=== PATIENT | female | born 1995 | race Caucasian/White ===

== ENCOUNTER → 2020-06-13 14:56 | Outpatient (BNVA) | payer SELFPAY | PROVIDERS: Family Provider Nurse Practitioner Family; PCP Nurse Practitioner Family; Visit Provider Nurse Practitioner Family | DX: Z13.6 Encounter for screening for cardiovascular disorders (principal); R53.82 Chronic fatigue, unspecified; F41.9 Anxiety disorder, unspecified; F32.9 Major depressive disorder, single episode, unspecified; E03.9 Hypothyroidism, unspecified | CPT/HCPCS: 80053; 80061; 82306; 82607; 83540; 83735; 84439; 84443; 84481; 85025 ==

== ENCOUNTER → 2020-07-24 16:22 | Outpatient (BNVA) | payer SELFPAY | PROVIDERS: Family Provider Nurse Practitioner Family; PCP Nurse Practitioner Family; Visit Provider Nurse Practitioner Family | DX: E03.9 Hypothyroidism, unspecified (principal) | CPT/HCPCS: 86376 ==

== ENCOUNTER 2020-08-14 15:34 | Inpatient (IN) | payer SELFPAY ==
[2020-08-14 15:39] VITALS: TEMP 36.7; BMI 22.9
[2020-08-14 16:20] VITALS: RESP 16
[2020-08-14 16:23] LABS: HCG Qualitative Urine. Negative (Negative)
[2020-08-14 16:30] LABS: Basophils # 0.1 10^3/uL (0.0-0.1); Basophils % 0.7 %; Eosinophils # 0.1 10^3/uL (0.0-0.8); Eosinophils % 0.9 %; Hematocrit 45.7 % (37.0-47.0); Hemoglobin 15.7 g/dL (11.5-15.3); Lymphocytes # 2.4 10^3/uL (0.8-4.8); Lymphocytes % 23.6 %; Mean Corpuscular HGB Conc 34.4 g/dL (30.0-36.0); Mean Corpuscular Hemoglobin 29.8 pg (28.0-34.0); Mean Corpuscular Volume 86.7 fL (81-99); Mean Platelet Volume 11.2 fL (7.4-10.4); Monocytes % 9.7 %; Neutrophils # 6.55 10^3/uL (1.8-7.7); Neutrophils % 64.8 %; Nucleated Red Blood Cells % 0 %; Platelet Count 403 10^3/cmm (130-400); Red Blood Count 5.27 10^6/uL (4.1-5.3); Red Cell Distribution Width 12.2 % (12.1-15.1); White Blood Count 10.1 10^3/uL (4.0-10.0)
[2020-08-14 16:43] LABS: Alanine Aminotransferase 11 U/L (0-33); Albumin Level 4.6 g/dL (3.5-5.2); Alkaline Phosphatase 62 IU/L (35-105); Anion Gap 11.8 (5-19); Aspartate Amino Transferase 13 U/L (0-32); Blood Urea Nitrogen 9 mg/dL (6-20); Calcium 9.8 mg/dL (8.5-10.5); Carbon Dioxide 28 mmol/L (22-29); Chloride 98 mmol/L (98-107); Globulin 2.9 g/dL (1.3-4.6); Glomerular Filtration Rate 102.8 mL/min (90-130); Glucose 101 mg/dL (65-115); Osmolality Calculated 277 mOsm/kg (285-295); Potassium 3.8 mmol/L (3.5-5.1); Sodium 134 mmol/L (136-145); Total Bilirubin 0.6 mg/dL (0.15-1.2); Total Protein 7.5 g/dL (6.6-8.7)
[2020-08-14 17:47] VITALS: RESP 17
--- NOTE | 2020-08-14 18:13 | W.ED.PSYCH ---
HPI - Psych General: Chief Complaint: Psychiatric Symptoms Stated Complaint: PSYCH EVAL/SENT FROM [facility] Time Seen by Provider: 08/14/20 15:49 History of Present Illness: HPI Narrative: 25-year-old female presents to the emergency room with complaints of depression anhedonia. She is having thoughts of harming herself but has no specific plan. She states she does not think she would be able to do it. MD complaint: suicidal ideation and feels depressed Onset (ago): month(s) Duration: intermittent History of same: Yes Relieving factors: none Exacerbating factors: none Associated psychiatric symptoms: depression and suicidal ideation Associated symptoms: Reports depression and suicidal ideation; Deny auditory hallucinations, visual hallucinations, delusions, homicidal ideation or racing thoughts Treatments prior to arrival: none If self harm: admits thoughts of self harm Review of Systems Const: Denies: fever(s), chills, body aches, change in appetite, fatigue or malaise ENMT: Denies: throat pain, ear or mastoid pain, nasal discharge or nasal congestion Card: Denies: chest pain, edema, dyspnea on exertion or orthopnea Resp: Denies: dyspnea, productive cough or non-productive cough GI: Denies: abdominal pain, nausea, vomiting, hematemesis, coffee ground emesis, diarrhea, constipation, bloating, hematochezia or melena : Denies: flank pain, difficulty voiding, dysuria, urinary frequency or urinary urgency Skin/Breast: Denies: rash or pruritus Psych: Reports: depression and suicidal ideation; Denies: visual hallucinations, auditory hallucinations or homicidal ideation [facility] ED PFSH: Family History Mother Hypertension Father Hypertension Social History Smoking and tobacco status: former smoker Quit status (tobacco): has quit using tobacco Second hand smoke exposure: No Alcohol intake: current Desire information about alcohol rehabilitation?: No Lives independently: Yes Housing: Apartment Marital status: Single Current gender identity: Female Vicky/Orthodox: Restorationism Special vicky needs: No Female Reproductive History: Date of last menstrual period: 07/28/20 Physical Exam Const: COMMON NORMALS: no acute distress GENERAL APPEARANCE: cooperative and comfortable ORIENTATION/CONSCIOUSNESS: Yes oriented to person, Yes oriented to place and Yes oriented to time HENMT: COMMON NORMALS: normocephalic, atraumatic and hearing grossly normal bilaterally HEAD & SCALP: normocephalic and atraumatic Neck/C-Spine: COMMON NORMALS: no JVD Resp: COMMON NORMALS: normal respiratory effort, No retractions, No use of accessory muscles and clear to auscultation bilaterally AUSCULTATION: clear to auscultation bilaterally Cardio: COMMON NORMALS: no JVD, regular rate, regular rhythm and No murmurs present (Cardio) RATE: regular rate RHYTHM: regular rhythm GI: COMMON NORMALS: Soft to palpation and No hepatosplenomegaly present AUSCULTATION: Yes normoactive bowel sounds PALPATION: Yes Soft to palpation, No Tenderness to palpation present (GI), No Guarding due to palpation present (GI) and Yes No hepatosplenomegaly present Extremity: COMMON NORMALS: normal to inspection, capillary refill normal, no clubbing, cyanosis or edema, no calf tenderness and no pedal edema Neuro: SENSORIUM/ORIENTATION: Yes oriented to person, Yes oriented to place and Yes oriented to time Psych: THOUGHT CONTENT: No delusions Skin: COMMON NORMALS: no rashes or lesions noted GENERAL SKIN EXAM: no rashes or lesions noted MDM - Psych MDM Narrative: Medical decision making narrative: Patient denies having any plans but is having frequent suicidal thoughts. She has started venlafaxine 2 weeks ago with no improvement. Discussed with Dr. Karimi on-call will admit patient is voluntarily wanting to go into the hospital did not place a 96-hour hold. Lab Data: Labs: Lab Results 08/14/20 08/14/20 08/14/20 Range/Units 16:05 16:05 16:05 WBC (4.0-10.0) 10^3/ uL RBC (4.1-5.3) 10^6/u L Hgb (11.5-15.3) g/dL Hct (37.0-47.0) % MCV (81-99) fL MCH (28.0-34.0) pg MCHC (30.0-36.0) g/dL RDW (12.1-15.1) % Plt Count (130-400) 10^3/c mm MPV (7.4-10.4) fL Neut % (Auto) % Lymph % (Auto) % Bowman % (Auto) % Eos % (Auto) % Baso % (Auto) % Neut # (Auto) (1.8-7.7) 10^3/u L Lymph # (Auto) (0.8-4.8) 10^3/u L Bowman # (Auto) (0.2-0.9) 10^3/u L Eos # (Auto) (0.0-0.8) 10^3/u L Baso # (Auto) (0.0-0.1) 10^3/u L Nucleated RBC % (a uto) % Nucleated RBCs # /100WBC Sodium (136-145) mmol/L Potassium (3.5-5.1) mmol/L Chloride (98-107) mmol/L Carbon Dioxide (22-29) mmol/L Anion Gap (5-19) BUN (6-20) mg/dL Creatinine (0.5-0.9) mg/dL GFR Calculation (90-130) mL/min Glucose (65-115) mg/dL Calculated Osmolal ity (285-295) mOsm/k g Calcium (8.5-10.5) mg/dL Total Bilirubin (0.15-1.2) mg/dL AST (0-32) U/L ALT (0-33) U/L Alkaline Phosphata se (35-105) IU/L Total Protein (6.6-8.7) g/dL Albumin (3.5-5.2) g/dL Globulin (1.3-4.6) g/dL HCG, Qual Negative (Negative) Urine Color Yellow (Yellow) Urine Appearance Cloudy (CLEAR) Urine pH 6.5 (5-7) Ur Specific Gravit y 1.020 (1.005-1.030) Urine Protein 2+ H (Negative) Urine Glucose (UA) Norm (Normal) Urine Ketones Negative (Negative) Urine Blood Neg (Negative) Urine Nitrate Negative (Negative) Urine Bilirubin Neg (Negative) Urine Urobilinogen 4 H (Negative) mg/dL Ur Leukocyte Toya ase Negative (Negative) Urine RBC 0-4 H (0-2) /hpf Urine WBC 0-4 H (0-5) /hpf Ur Squamous Epith Cells 5-10 H (0-5) /hpf Amorphous Sediment Not Reportable Urine Bacteria 1+ H (NONE) /hpf Salicylates (3-10) mg/dL Urine Opiates Scre en Negative (Negative) ng/mL Acetaminophen (10-30) ug/mL Ur Barbiturates Sc reen Negative (Negative) ng/mL Ur Phencyclidine S crn Negative (Negative) ng/mL Ur Amphetamines Sc reen Negative (Negative) ng/mL U Benzodiazepines Scrn Negative (Negative) ng/mL Urine Cocaine Scre en Negative (Negative) ng/mL U Marijuana (THC) Screen Negative (Negative) ng/mL Ethyl Alcohol (0-10) mg/dL 08/14/20 08/14/20 08/14/20 Range/Units 16:15 16:15 16:15 WBC 10.1 H (4.0-10.0) 10^3/ uL RBC 5.27 (4.1-5.3) 10^6/u L Hgb 15.7 H (11.5-15.3) g/dL Hct 45.7 (37.0-47.0) % MCV 86.7 (81-99) fL MCH 29.8 (28.0-34.0) pg MCHC 34.4 (30.0-36.0) g/dL RDW 12.2 (12.1-15.1) % Plt Count 403 H (130-400) 10^3/c mm MPV 11.2 H (7.4-10.4) fL Neut % (Auto) 64.8 % Lymph % (Auto) 23.6 % Bowman % (Auto) 9.7 % Eos % (Auto) 0.9 % Baso % (Auto) 0.7 % Neut # (Auto) 6.55 (1.8-7.7) 10^3/u L Lymph # (Auto) 2.4 (0.8-4.8) 10^3/u L Bowman # (Auto) 1.0 H (0.2-0.9) 10^3/u L Eos # (Auto) 0.1 (0.0-0.8) 10^3/u L Baso # (Auto) 0.1 (0.0-0.1) 10^3/u L Nucleated RBC % (a uto) 0 % Nucleated RBCs # 0.0 /100WBC Sodium 134 L (136-145) mmol/L Potassium 3.8 (3.5-5.1) mmol/L Chloride 98 (98-107) mmol/L Carbon Dioxide 28 (22-29) mmol/L Anion Gap 11.8 (5-19) BUN 9 (6-20) mg/dL Creatinine 0.7 (0.5-0.9) mg/dL GFR Calculation 102.8 (90-130) mL/min Glucose 101 (65-115) mg/dL Calculated Osmolal ity 277 L (285-295) mOsm/k g Calcium 9.8 (8.5-10.5) mg/dL Total Bilirubin 0.6 (0.15-1.2) mg/dL AST 13 (0-32) U/L ALT 11 (0-33) U/L Alkaline Phosphata se 62 (35-105) IU/L Total Protein 7.5 (6.6-8.7) g/dL Albumin 4.6 (3.5-5.2) g/dL Globulin 2.9 (1.3-4.6) g/dL HCG, Qual (Negative) Urine Color (Yellow) Urine Appearance (CLEAR) Urine pH (5-7) Ur Specific Gravit y (1.005-1.030) Urine Protein (Negative) Urine Glucose (UA) (Normal) Urine Ketones (Negative) Urine Blood (Negative) Urine Nitrate (Negative) Urine Bilirubin (Negative) Urine Urobilinogen (Negative) mg/dL Ur Leukocyte Toya ase (Negative) Urine RBC (0-2) /hpf Urine WBC (0-5) /hpf Ur Squamous Epith Cells (0-5) /hpf Amorphous Sediment Urine Bacteria (NONE) /hpf Salicylates < 0.3 L (3-10) mg/dL Urine Opiates Scre en (Negative) ng/mL Acetaminophen < 5.0 L (10-30) ug/mL Ur Barbiturates Sc reen (Negative) ng/mL Ur Phencyclidine S crn (Negative) ng/mL Ur Amphetamines Sc reen (Negative) ng/mL U Benzodiazepines Scrn (Negative) ng/mL Urine Cocaine Scre en (Negative) ng/mL U Marijuana (THC) Screen (Negative) ng/mL Ethyl Alcohol < 10 (0-10) mg/dL Discharge Plan Discharge Patient Disposition: Admitted As Inpatient Admit Provider: Eze Karimi Clinical Impression: Suicidal ideation, Depression Condition: Stable Coding Level of Care Code ED Human Factors Advisor Lead for Jovana Del Valle
[2020-08-14 18:19] LABS: Add Urine Microscopic? YES; Bacteria Urine 1+ /hpf; Bilirubin Urine Neg (Negative); Blood Urine Neg (Negative); Glucose Urine UA Norm (Normal); Ketones Urine Negative (Negative); Leukocyte Esterase Urine Negative (Negative); Nitrate Urine Negative (Negative); Protein Urine 2+ (Negative); RBC Urine 0-4 /hpf (0-2); Urine Appearance Cloudy (CLEAR); Urine Color Yellow (Yellow); Urobilinogen Urine 4 mg/dL (Negative); WBC Urine 0-4 /hpf (0-5); pH Urine 6.5 (5-7)
[2020-08-14 18:39] VITALS: BP 119/84; PULSE 101; RESP 16; TEMP 36.7; O2SAT 100
[2020-08-14 19:06] LABS: Acetaminophen < 5.0 ug/mL (10-30); Alcohol Level < 10 mg/dL (0-10); Salicylate < 0.3 mg/dL (3-10)
[2020-08-14 19:13] LABS: Amphetamines Screen Urine Negative (Negative); Barbiturates Screen Urine Negative (Negative); Benzodiazepines Screen Urine Negative (Negative); Cocaine Screen Urine Negative (Negative); Opiate Screen Urine Negative (Negative); PCP Screen Urine Negative (Negative); THC Screen Urine Negative (Negative)
[2020-08-14 19:16] VITALS: BP 131/92; PULSE 120; RESP 18; TEMP 36.7; O2SAT 93
[2020-08-14 20:23] VITALS: BP 131/92; PULSE 120; RESP 18; TEMP 36.7; O2SAT 93
--- NOTE | 2020-08-14 20:25 | PC.NURSE ---
Skin assessment revealed no wounds, injuries or abnormalities.
[2020-08-14] MEDS: trazodone 50 mg Tablet PO (20:31)
[2020-08-14] MEDS: hyDROXYzine 25 mg Capsule 50 MG PO (20:32)
[2020-08-15 06:00] VITALS: BP 104/67; PULSE 78; RESP 16; TEMP 36.9; O2SAT 97
[2020-08-15 14:00] VITALS: BP 109/79; PULSE 60; RESP 20; TEMP 37; O2SAT 98
--- NOTE | 2020-08-15 14:38 | P.HP_ITS ---
Providers/Chief Complaint Admitting Physician: Eze Karimi DO Primary Care Provider: SHERRY Chavarria Chief Complaint: PSYCH EVAL/SENT FROM [facility] HPI NPU History of Present Illness Allie Garay is a 25 year old female with history of depressive and anxiety symptoms over the past 2 months reports worsening depressive symptoms in the context of obsessions, intrusive thoughts with intermittent passive suicidal thoughts with no active intent or plan. Patient states that her symptoms started after having a panic attack a couple months ago and reports daily symptoms of intrusive thoughts, excessive worry, difficulty controlling her worrying, difficulty initiating and maintaining sleep secondary to her anxiety symptoms. Patient reports that her severe anxiety symptoms cause significant depressive symptoms as well as thoughts that she might as well not be alive. Patient reports being started on a couple of low-dose regimens of antidepressant which she had stopped because of anxiety about potentially having side effects to these medications without accomplishing a therapeutic dosage. Patient denies any ongoing therapy targeting the symptoms. Patient reports that with her symptoms she occasionally has some paresthesias in her hands and occasionally feet as well as having an upset stomach intermittently experiencing constipation and diarrhea. Patient denies any auditory or visual destinations, denies any disorganized speech or behavior, denies any delusions. She denies any past or recent manic or hypomanic episodes. Patient denies any history of psychiatric hospitalizations and denies any history of suicide attempts. Patient reports previous cigarette smoking and vaping but denies any use for the past 3 months. She also reports past marijuana use intermittently but denies any daily use and denies any use over the past couple of months. She denies any other illicit drug use. Patient also reports that she has not drank any alcohol over the past couple of months because of concerns with her symptoms. Review of Systems General: Reports: 10 or more systems reviewed and unremarkable except in HPI and below Meds NPU Home Medications Medication Instructions Recorded Confirmed Last Taken Type cholecalciferol (vitamin D3) 50 mcg PO DAILY@0 08/14/20 08/14/20 Unknown History venlafaxine 75 mg PO DAILY@0 08/14/20 08/14/20 08/14/20 History Allergies Allergy/AdvReac Type Severity Reaction Status Date / Time No Known Allergies Allergy Verified 07/27/20 17:00 PFS NPU PFSH: Family History Mother Hypertension Father Hypertension Social History Smoking and tobacco status: former smoker Quit status (tobacco): has quit using tobacco Second hand smoke exposure: No Alcohol intake: current Desire information about alcohol rehabilitation?: No Lives independently: Yes Housing: Apartment Marital status: Single Current gender identity: Female Vicky/Christianity: Protestant Special vicky needs: No Other Psychiatric History: Other Psychiatric History: Reports being seen by [facility] for medication management and therapy Denies any history of psychiatric hospitalization Denies any history of suicide attempt or self-harm behavior Mental Status Exam MSE Comments: Appears stated age, thin frame, somewhat disheveled, tired appearing, appropriately dressed in hospital attire, somewhat nervous but cooperative with interview, good eye contact Psychomotor activity is neither increased nor decreased, no agitation Speech is normal rate and volume, spontaneous, clear to condition, not pressured I feel really nervous, congruent affect, intermittently tearful throughout interview Alert and oriented to person, place, time, situation Memory and concentration appear to be intact per interview Intellectual functioning appears to be average based on vocabulary, interview Thought process, circumstantial requiring some redirection, no flight of ideas, no looseness of associations Thought content, no delusions, no hallucinations, no suicidal or homicidal ideation Insight and judgment appear to be intact Vitals/I&O/Wt Last Vital Signs Temp 98.6 F 08/15/20 14:00 Pulse 60 08/15/20 14:00 Resp 20 H 08/15/20 14:00 BP 109/79 08/15/20 14:00 Pulse Ox 98 08/15/20 14:00 Weight last 48 hrs Weight 62.596 kg Data NPU : 08/14/20 16:15 08/14/20 16:15 A&P Assessment and plan (1) Suicidal ideation: Status: Acute (2) Depression: Status: Acute (3) Anxiety disorder: Status: Acute Additional A&P Information Patient with new onset obsessions, worsening anxiety over the past couple months starting with a panic attack with intermittent panic symptoms, depressive symptoms, passive suicidal ideation with no active intent or plan presents with worsening impairment secondary to her anxiety and depressive symptoms on her current medication regimen. VOLUNTARY ADMIT to inpatient psychiatry START sertraline 25 mg daily targeting depressive and anxiety symptoms START clonazepam 0.25 mg twice daily targeting anxiety symptoms with plan to taper off and discontinue prior to discharge Coordinate with social secretary for post discharge medication management and therapy follow-up Involuntary Hold Information 96 Hour Hold: 96 Hour Involuntary Admission: No Attestations NPU Medical Necessity Statement*: Patient requires psychiatric hospitalization for medication stabilization and coordination for safe discharge Anticipate hospital stay to exceed 2 midnights Time Spent in Patient Care: Greater than 35 minutes (>than 50% of time spent in counselling and/or direct pt care on unit) . Coding Level of Care Code Acute Information Services Vice President for Chg Fwd Diagnoses Suicidal ideation R45.851 Depression F32.9 Anxiety disorder F41.9
[2020-08-15] MEDS: CLONazepam 0.5 mg Tablet 0.25 MG PO ×2 (15:12→19:29)
[2020-08-15] MEDS: venlafaxine 75 mg Tablet PO (16:53)
[2020-08-15] MEDS: cholecalciferol (vitamin D3) 1,000 unit Tablet 2000 UNIT PO (16:53)
[2020-08-15 20:09] VITALS: BP 100/69; PULSE 76; RESP 18; TEMP 36.3; O2SAT 99
[2020-08-16 06:00] VITALS: BP 102/68; PULSE 80; RESP 16; TEMP 36.4; O2SAT 98
[2020-08-16] MEDS: CLONazepam 0.5 mg Tablet 0.25 MG PO ×2 (07:52→20:35)
[2020-08-16] MEDS: sertraline 50 mg Tablet 25 MG PO (07:52)
--- NOTE | 2020-08-16 09:32 | P.PN_ITS ---
Subjective NPU Subjective: Interval history: Patient reports improvement with regards to intrusive thoughts, describes occasional passive thoughts but less passive suicidal thoughts, no active intent or plan Continues to report some anxiety but reports significant improvement, denies any interval panic symptoms Denies any interval perceptual disturbances Reports being compliant with her medication, denies any medication side effects Reports having a fair to good appetite Reports improved sleep with occasional sleep disturbances, reports feeling rested this morning Per staff report, no interval behavioral disturbances Mental Status Exam MSE Comments: Appropriately groomed and dressed, lying in bed, calm, cooperative, interactive, good eye contact Psychomotor activity is neither increased nor decreased, no agitation Speech is normal rate and volume, spontaneous, not pressured I feel a little better, congruent affect, not labile Alert and oriented to person, place, time, situation Memory and concentration appear to be intact per interview Thought process, linear, no flight of ideas, no looseness of associations Thought content, no delusions, no hallucinations, no suicidal or homicidal ideation Insight and judgment appear to be intact Vitals/I&O/Wt Last Vital Signs Temp 97.5 F L 08/16/20 06:00 Pulse 80 08/16/20 06:00 Resp 16 08/16/20 06:00 BP 102/68 08/16/20 06:00 Pulse Ox 98 08/16/20 06:00 Weight last 48 hrs Weight 62.596 kg Data NPU : 08/14/20 16:15 08/14/20 16:15 A&P Assessment and plan (1) Suicidal ideation: Status: Acute (2) Anxiety disorder: Status: Acute Qualifiers: Anxiety disorder type: unspecified anxiety disorder Qualified Code(s): F41.9 - Anxiety disorder, unspecified (3) Depression: Status: Acute Qualifiers: Depression Type: unspecified Qualified Code(s): F32.9 - Major depressive disorder, single episode, unspecified Additional A&P Information Patient reports more immediate improvement with regards to intrusive thoughts, continues to report intermittent depressive and anxiety symptoms, intermittent passive suicidal thoughts with no active intent or plan INCREASE to sertraline 50 mg daily targeting depressive and anxiety symptoms Involuntary Hold Information 96 Hour Hold: 96 Hour Involuntary Admission: No Attestations NPU Medical Necessity Statement*: Continues require psychiatric hospitalization for medication stabilization, coordination for safe discharge Coding Level of Care Code Acute Fancy Stitcher for [facility] Eligio Diagnoses Suicidal ideation R45.851 Anxiety disorder F41.9 Anxiety disorder type: unspecified anxiety disorder Depression F32.9 Depression Type: unspecified
[2020-08-16 14:00] VITALS: BP 115/71; PULSE 99; RESP 17; TEMP 36.7; O2SAT 98
[2020-08-16] MEDS: cholecalciferol (vitamin D3) 1,000 unit Tablet 2000 UNIT PO (16:32)
[2020-08-16] MEDS: venlafaxine 75 mg Tablet PO (16:33)
--- NOTE | 2020-08-16 19:21 | P.PN_ITS ---
NPU Therapy Progress Note Therapy Progress Note Date: 08/16/20 Time In: 18:00 Time Out: 18:15 Symptoms Reported: depression, anxiety Mood: stable Progress Note: JANNET approached Allie while sitting in the dayroom and she is agreeable to talk. She reports issue surrounding medication reaction and elevated anxiety as the reason that brought her to the hospital. She describes the progression of her sx over the course of 2 months beginning with the symptoms of a heaviness in which she describes just not feeling herself and she became anxious about potentially never being able to get over this feeling and her sx escalated from there to thoughts of suicide. She tried over the course of these 2 months to adjust her medication by following up with her doctor but reports this only made it worse. Intervention: BOOKMOBILE LIBRARIAN listened and provided support. BOOKMOBILE LIBRARIAN educated on sx of anxiety and ways of reducing anxiety through therapy tx. BOOKMOBILE LIBRARIAN educated on [facility] services and encouraged Allie to follow up after being released. Reported Goals Before Discharge: none reported
[2020-08-16 19:50] VITALS: BP 121/84; PULSE 86; RESP 18; TEMP 36.8; O2SAT 97
--- NOTE | 2020-08-16 21:41 | PC.NURSE ---
PM Assessment PT denies pain, denies AH/VH, denies SI/HI. pt is calm at this time. She has been up on the patient telephone, tone is appropriate, affect is appropriate, asks/answers questions appropriately. Pt reports feeling less depressed today. Pt educated on medications and to report any new developing symptoms that affect her mental status. Pt agreed to consult nurse if thought process or mood changes negatively.
[2020-08-17 06:00] VITALS: BP 99/64; PULSE 83; RESP 18; TEMP 36.5; O2SAT 98
--- NOTE | 2020-08-17 06:07 | PC.NURSE ---
slept well pt slept all night without waking. no Prn med given
[2020-08-17] MEDS: CLONazepam 0.5 mg Tablet 0.25 MG PO ×2 (07:31→20:33)
[2020-08-17] MEDS: sertraline 50 mg Tablet PO (07:31)
--- NOTE | 2020-08-17 12:46 | P.PN_ITS ---
Subjective NPU Subjective: Interval history: Reports intermittent low mood symptoms but reports overall continued improvement, denies any interval suicidal ideation Continues to have some intrusive thoughts, continues to report some anxiety symptoms, denies any interval panic attacks Reports improved appetite Reports improved sleep Per above, patient continues to have some intrusive thoughts, obsessions with regards to potential for relapse of worsening symptoms which causes some anxiety Reports being compliant with her medication and tolerating cross taper with venlafaxine well with no reported medication side effects Mental Status Exam MSE Comments: Lying in bed, appropriately groomed and dressed, polite, calm, cooperative, interactive, good eye contact Psychomotor activity is neither increased nor decreased, no agitation Speech is normal rate and volume, spontaneous, not pressured I feel okay, congruent affect, not labile Alert and oriented to person, place, time, situation Memory and concentration appear to be intact per interview Thought process, linear, no flight of ideas, no looseness of associations Thought content, no delusions, no hallucinations, no suicidal or homicidal ideation Insight and judgment appear to be intact Vitals/I&O/Wt Last Vital Signs Temp 97.7 F 08/17/20 06:00 Pulse 83 08/17/20 06:00 Resp 18 08/17/20 06:00 BP 99/64 08/17/20 06:00 Pulse Ox 98 08/17/20 06:00 Data NPU : 08/14/20 16:15 08/14/20 16:15 A&P Assessment and plan (1) Suicidal ideation: Status: Acute (2) Anxiety disorder: Status: Acute Qualifiers: Anxiety disorder type: unspecified anxiety disorder Qualified Code(s): F41.9 - Anxiety disorder, unspecified (3) Depression: Status: Acute Qualifiers: Depression Type: unspecified Qualified Code(s): F32.9 - Major depressive disorder, single episode, unspecified Additional A&P Information Ongoing anxiety symptoms in anticipation of potential relapse or worsening of depressive and anxiety symptoms, reports intermittent intrusive thoughts but some improvement INCREASE to sertraline 100 mg daily targeting depressive and anxiety symptoms DISCONTINUE venlafaxine CONTINUE clonazepam with plan to taper and discontinue prior to discharge Involuntary Hold Information 96 Hour Hold: 96 Hour Involuntary Admission: No Attestations NPU Medical Necessity Statement*: Continues to require psychiatric hospitalization for medication stabilization, coordination for safe discharge Coding Level of Care Code Acute Charter Representative for Chg Fwd Diagnoses Suicidal ideation R45.851 Anxiety disorder F41.9 Anxiety disorder type: unspecified anxiety disorder Depression F32.9 Depression Type: unspecified
[2020-08-17 13:22] VITALS: BP 118/82; PULSE 92; RESP 18; TEMP 36; O2SAT 96
[2020-08-17] MEDS: cholecalciferol (vitamin D3) 1,000 unit Tablet 2000 UNIT PO (16:05)
--- NOTE | 2020-08-17 21:40 | PC.NURSE ---
PM ASSESSMENT PT DENIES PAIN, DENIES AH/VH, DENIES SI/HI, REPORTS A DECREASE IN DEPRESSIVE SYMPTOMS THIS EVENING. PT IS SITTING IN THE DAYROOM WATCHING TELEVISION, V/S ARE NORMAL, HEART/LUNG SOUNDS ARE WNL. PT EXPRESSED CONFUSION OF HER MEDICATIONS, EDUCATED NEW MEDICATION, ZOLOFT 100MG PO DAILY, AND THE DISCONTINUATION OF EFFEXOR. PT DENIES ANXIETY THIS EVENING. SHE HAS BEEN ON THE PATIENT PHONE A COUPLE OF TIMES THIS EVENING, TONE APPROPRIATE, SHE IS CALM/COOPERATIVE WITH STAFF. PT REQUESTED A BATH, ATE HER SNACK, AND SHE IS CALMLY WATCHING TELEVISION IN THE DAYROOM AT THIS TIME. WILL CONTINUE TO OBSERVE PATIENT FOR ANY S/S OF MEDICATION RELATED CHANGES.
[2020-08-17 22:00] VITALS: BP 118/82; PULSE 80; RESP 16; TEMP 36.7; O2SAT 99
[2020-08-18 05:45] VITALS: BP 105/70; PULSE 68; RESP 17; TEMP 36.8; O2SAT 98
[2020-08-18] MEDS: sertraline 50 mg Tablet 100 MG PO (08:25)
[2020-08-18] MEDS: CLONazepam 0.5 mg Tablet 0.25 MG PO ×2 (08:25→21:43)
--- NOTE | 2020-08-18 13:26 | PM.NPN ---
Subjective NPU Subjective: Interval history: Reports significant improvement in her anxiety symptoms, reports minimal intrusive thoughts of the past 24 hours, denies any interval panic symptoms Reports occasional low-grade low mood for short periods but denies any sustained depressive symptoms, denies any interval suicidal ideation, denies any interval tearful episodes Reports being compliant with her medication, denies any medication side effects Mental Status Exam MSE Comments: Appears stated age, appropriately groomed and dressed, calm, cooperative, interactive, good eye contact Psychomotor activity is neither increased nor decreased, no agitation Speech is normal rate and volume, spontaneous, clear articulation, not pressured I am feeling much better, , full range of affect, appropriately smiles at times during interview, not labile Alert and oriented to person, place, time, situation Thought process, linear, no flight of ideas, no looseness of associations Thought content, no delusions, no hallucinations, no suicidal homicidal ideation Memory and concentration appear to be intact per interview Insight and judgment appear to be intact Vitals/I&O/Wt Last Vital Signs Temp 98.3 F 08/18/20 05:45 Pulse 68 08/18/20 05:45 Resp 17 08/18/20 05:45 BP 105/70 08/18/20 05:45 Pulse Ox 98 08/18/20 05:45 Data NPU : 08/14/20 16:15 08/14/20 16:15 A&P Assessment and plan (1) Suicidal ideation: Status: Acute (2) Anxiety disorder: Status: Acute Qualifiers: Anxiety disorder type: unspecified anxiety disorder Qualified Code(s): F41.9 - Anxiety disorder, unspecified (3) Depression: Status: Acute Qualifiers: Depression Type: unspecified Qualified Code(s): F32.9 - Major depressive disorder, single episode, unspecified Additional A&P Information Ongoing improvement, decreasing intrusive thoughts, improving depressive symptoms CONTINUE current medication, continue to monitor Involuntary Hold Information 96 Hour Hold: 96 Hour Involuntary Admission: No Attestations NPU Medical Necessity Statement*: Continues require psychiatric hospitalization for medication stabilization, coordination for safe discharge Coding Level of Care Code Acute Dishwashing Machine Operator for [facility] Fwd Diagnoses Suicidal ideation R45.851 Anxiety disorder F41.9 Anxiety disorder type: unspecified anxiety disorder Depression F32.9 Depression Type: unspecified
[2020-08-18 14:00] VITALS: BP 123/76; PULSE 92; RESP 18; TEMP 36.6; O2SAT 97
[2020-08-18] MEDS: cholecalciferol (vitamin D3) 1,000 unit Tablet 2000 UNIT PO (16:03)
[2020-08-18 22:00] VITALS: BP 122/81; PULSE 92; RESP 16; TEMP 36.7; O2SAT 98
--- NOTE | 2020-08-18 23:14 | PC.NURSE ---
Patient was given 0.25mg Klonipin PO per scheduled order at 21:43. 0.5 mg tab was pulled from Pyxis, 0.25 ( one half tab ) was wasted with second nurse Jessy Ch.
[2020-08-19 06:00] VITALS: BP 107/71; PULSE 80; RESP 16; TEMP 36.7; O2SAT 96
[2020-08-19] MEDS: sertraline 50 mg Tablet 100 MG PO (08:26)
--- NOTE | 2020-08-19 09:55 | P.DS_ITS ---
Diagnoses at Discharge Discharge Diagnosis (1) Suicidal ideation: Status: Acute (2) Anxiety disorder: Status: Acute Qualifiers: Anxiety disorder type: unspecified anxiety disorder Qualified Code(s): F41.9 - Anxiety disorder, unspecified (3) Depression: Status: Acute Qualifiers: Depression Type: unspecified Qualified Code(s): F32.9 - Major depressive disorder, single episode, unspecified Reason for Visit Reason for Visit: PSYCH EVAL/SENT FROM [facility] Hospital Course Hospital Course 25 year old female with history of depressive and anxiety symptoms over the past 2 months reports worsening depressive symptoms in the context of obsessions, intrusive thoughts with intermittent passive suicidal thoughts with no active intent or plan. Patient states that her symptoms started after having a panic attack a couple months ago and reports daily symptoms of intrusive thoughts, excessive worry, difficulty controlling her worrying, difficulty initiating and maintaining sleep secondary to her anxiety symptoms. Patient states that she had difficulty tolerating medication secondary to her severe anxiety thinking that every medication that she would start because significant side effects looking them up on the Internet. Patient reported ongoing obsessions at the time of her initial evaluation but denied any past or current compulsions in the context of her ongoing anxiety but her obsessions often timed included irrational fears of hurting herself or potentially others. Patient severe anxiety symptoms were mitigated by starting scheduled clonazepam 0.5 mg twice daily during her hospital stay with good results while titrating up on sertraline to sertraline 100 mg daily and will likely require higher doses to control her obsessions and anxiety symptoms. Patient's depressive symptoms appear to be in the context of her uncontrolled anxiety symptoms but she reported significant improvement throughout her hospital stay while titrating up on medication and control of her anxiety symptoms. Patient participated in unit milieu to include group sessions with no reports of any behavioral disturbances. She tolerated her medication changes with no reports of any medication side effects. Patient was not suicidal at the time of discharge and did not appear to pose an imminent threat of harm to self or others. Low to moderate risk of harm to self or others given no current suicidal ideation and no history of suicide attempts or self-harm behavior as well as significant control of her psychiatric symptoms at the time of discharge although patient's risk may be elevated if she uses substances or alcohol or is noncompliant with her medication and medication management follow-up leading to unexpected, impulsive behavior. Risk mitigation included psychiatric hospitalization, medication stabilization, recommendation to abstain from the use of any substances and alcohol as well as the need for compliance with her medication, medication management and counseling follow-up in order to further mitigate her risk of harm to self and others. Involuntary Hold Information 96 Hour Hold: 96 Hour Involuntary Admission: No Mental Status Exam MSE Comments: Lying in bed, appropriately groomed and dressed, calm, cooperative, interactive, good eye contact Psychomotor activity is neither increased nor decreased, no agitation Speech is normal rate and volume, spontaneous, clear articulation, not pressured I feel good, , full range of affect, appropriately smiles at times during interview, not labile Alert and oriented to person, place, time, situation Memory and concentration appear to be intact per interview Thought process, linear, no flight of ideas, no looseness of associations Thought content, no delusions, no hallucinations, no suicidal homicidal ideation Insight and judgment appear to be intact Discharge Data Vitals: Last Vital Signs Temp 98.1 F 08/19/20 06:00 Pulse 80 08/19/20 06:00 Resp 16 08/19/20 06:00 BP 107/71 08/19/20 06:00 Pulse Ox 96 08/19/20 06:00 Discharge Plan Discharge Patient Disposition: Home Condition: Stable Prescriptions: New sertraline 50 mg Tablet 100 mg PO DAILY Qty: 30 RF: 0 Continued cholecalciferol (vitamin D3) 50 mcg (2,000 unit) tablet 50 mcg PO DAILY@1700 RF: 0 Discontinued venlafaxine 75 mg tablet 75 mg PO DAILY@1700 RF: 0 Discharge Orders: Discharge Order (Routine); Ordered 08/19/20 Ordered By: Eze Karimi Referrals: [facility] [place] [facility] [Outside] - 08/21/20 9:15 am (Phone assessment with Delphine Martin) Chata Barker FNP-C [Primary Care Provider] - Discharge Diet: Regular Discharge Activity: Resume usual activity Discharge Attestations NPU Time Spent in Discharge Care*: greater than 30 min Status at Discharge: Cognitive status at discharge: cognitively intact , Behavioral status at discharge: cooperative , Functional status at discharge: independent ambulation Overall status at discharge: patient is back to baseline Coding Level of Care Code Acute [employer] Workers for [facility] Fwd Diagnoses Suicidal ideation R45.851 Anxiety disorder F41.9 Anxiety disorder type: unspecified anxiety disorder Depression F32.9 Depression Type: unspecified
[2020-08-19 10:03] VITALS: BP 107/71; PULSE 80; RESP 16; TEMP 36.7; O2SAT 96
== END 2020-08-19 11:32 | disposition home or self-care (01) | DRG 880 ==
LOC: ER 18:17 → NP 18:38
PROVIDERS: Admitting Provider Psychiatry & Neurology Psychiatry; Emergency Provider Family Medicine; PCP Nurse Practitioner Family; Visit Provider Psychiatry & Neurology Psychiatry
DX: F41.8 Other specified anxiety disorders (principal); R45.851 Suicidal ideations; F17.210 Nicotine dependence, cigarettes, uncomplicated
CPT/HCPCS: 80053; 80306; 80307; 81001; 81025; 85025; 99285

== ENCOUNTER → 2021-01-10 11:18 | Outpatient (BNVA) | payer OTHER, SELFPAY | PROVIDERS: PCP Nurse Practitioner Family; Visit Provider Nurse Practitioner Family | DX: Z11.52 Encounter for screening for COVID-19 (principal); J02.9 Acute pharyngitis, unspecified | CPT/HCPCS: 87071; 87635; 87880 ==

== ENCOUNTER → 2021-03-14 09:50 | Outpatient (BNVA) | payer SELFPAY | PROVIDERS: PCP Nurse Practitioner Family; Visit Provider Nurse Practitioner Family | DX: R53.82 Chronic fatigue, unspecified (principal); Z13.6 Encounter for screening for cardiovascular disorders; E03.9 Hypothyroidism, unspecified; F41.9 Anxiety disorder, unspecified; F32.9 Major depressive disorder, single episode, unspecified | CPT/HCPCS: 80053; 80061; 82306; 82607; 83735; 84443; 85025 ==

== ENCOUNTER → 2022-09-26 09:23 | Outpatient (BNVA) | payer SELFPAY | PROVIDERS: PCP Nurse Practitioner Family; Visit Provider Nurse Practitioner Family | DX: E03.9 Hypothyroidism, unspecified (principal); F32.9 Major depressive disorder, single episode, unspecified; F41.9 Anxiety disorder, unspecified; Z13.6 Encounter for screening for cardiovascular disorders; R53.82 Chronic fatigue, unspecified | CPT/HCPCS: 80053; 80061; 82306; 82607; 83735; 84439; 84443; 84481; 85025; 86376 ==

== ENCOUNTER → 2022-10-22 12:41 | Outpatient (BNVA) | payer SELFPAY | PROVIDERS: PCP Nurse Practitioner Family; Visit Provider Nurse Practitioner Family | DX: Z12.4 Encounter for screening for malignant neoplasm of cervix (principal); Z11.3 Encounter for screening for infections with a predominantly sexual mode of transmission | CPT/HCPCS: 87491; 87591; 87661; 88175 ==

== ENCOUNTER → 2023-05-01 12:28 | Outpatient (BNVA) | payer SELFPAY | PROVIDERS: PCP Nurse Practitioner Family; Visit Provider Nurse Practitioner Family | DX: H66.93 Otitis media, unspecified, bilateral (principal); J06.9 Acute upper respiratory infection, unspecified | CPT/HCPCS: 87486; 87581; 87633 ==

== ENCOUNTER → 2023-07-15 16:35 | Outpatient (BNVA) | payer SELFPAY | PROVIDERS: PCP Nurse Practitioner Family; Visit Provider Nurse Practitioner Family | DX: R07.0 Pain in throat (principal) | CPT/HCPCS: 87071; 87880 ==

== ENCOUNTER → 2023-11-05 09:13 | Outpatient (BNVA) | payer SELFPAY | PROVIDERS: PCP Nurse Practitioner Family; Visit Provider Nurse Practitioner Family | DX: E03.9 Hypothyroidism, unspecified (principal); Z13.6 Encounter for screening for cardiovascular disorders; Z79.899 Other long term (current) drug therapy | CPT/HCPCS: 80053; 80061; 84439; 84443; 84481; 85025 ==

== ENCOUNTER → 2023-11-07 10:42 | Outpatient (BNVA) | payer SELFPAY | PROVIDERS: PCP Nurse Practitioner Family; Visit Provider Nurse Practitioner Family | DX: F41.9 Anxiety disorder, unspecified (principal); F32.9 Major depressive disorder, single episode, unspecified; E55.9 Vitamin D deficiency, unspecified | CPT/HCPCS: 82306; 82607 ==

== ENCOUNTER → 2025-02-08 08:23 | Outpatient (BNVA) | payer SELFPAY | PROVIDERS: PCP Nurse Practitioner Family; Visit Provider Nurse Practitioner Family | DX: R05.9 Cough, unspecified (principal) | CPT/HCPCS: 87426 ==